=== PATIENT | female | born 1960 | race Caucasian/White ===

== ENCOUNTER 2018-11-19 22:38 | Outpatient (CLI) | payer MEDICAID | END 2018-11-19 22:39 | disposition critical access hospital (66) | LOC: EMS 22:38 | PROVIDERS: ATTEND Surgery | DX: R53.1 Weakness (principal); R42 Dizziness and giddiness | CPT/HCPCS: A0425; A0429; A0999 ==

== ENCOUNTER 2018-11-19 22:53 | Emergency (ER) | payer MEDICAID ==
--- NOTE | 2018-11-19 23:11 | ED Physician Documentation ---
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 Patient was using Raid bug spray tonight and upon breathing in the fumes she became dizzy and lightheaded, had nausea and vomiting, tinnitus, generalized weakness, and diaphoresis. She lay down and felt too weak and dizzy to get back up and thus called 911. Improved en route without specific intervention Review of Systems Constitutional: reports: Sweats. denies: Fever, Chills Eyes: denies: Loss of vision, Decreased vision Ears: reports: Tinnitus/ringing Cardiac: reports: Reviewed and negative Respiratory: reports: Reviewed and negative GI: reports: Nausea, Vomiting. denies: Abdominal Pain : denies: Incontinent Neurologic: reports: Generalized weakness. denies: Focal weakness, Numbness, Headache PD PAST MEDICAL HISTORY - Past Medical History Past Medical History: Yes Respiratory: Other ("reactive airway disease" (per patient)) - Present Medications Home Medications: Ambulatory Orders Medication Instructions Recorded Confirmed Albuterol Sulfate [Albuterol 2 puffs IH Q4HR PRN 11/20/18 11/20/18 Sulfate Hfa] Medroxyprogesterone Acetate 0.5 ml IM 11/20/18 [Depo-Subq Provera 104] Tiotropium [place] [Spiriva 2 puffs IH BID 11/20/18 11/20/18 Respimat] - Allergies Allergies/Adverse Reactions: Allergies Allergy/AdvReac Type Severity Reaction Status Date / Time codeine Allergy Rash Verified 11/19/18 22:58 hydromorphone [From Dilaudid] Allergy Hallucinati Verified 11/19/18 22:59 ons Penicillins Allergy Unknown Verified 11/19/18 22:58 aspirin AdvReac Emesis Verified 11/19/18 22:58 - Living Situation Living Arrangement: reports: At home PD ED PE NORMAL - Vitals Vital signs reviewed: Yes - General General: Alert and oriented X 3, No acute distress, Well developed/nourished - HEENT HEENT: PERRL, EOMI, Moist mucous membranes, Pharynx benign - Neck Neck: Supple, no meningeal sign - Cardiac Cardiac: RRR, No murmur, No gallop, No rub - Respiratory Respiratory: No respiratory distress, Clear bilaterally - Abdomen Abdomen: Soft, Non tender - Derm Derm: Normal color, Warm and dry - Extremities Extremities: No edema - Neuro Neuro: Alert and oriented X 3, 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, No motor deficit, No sensory deficit, Normal speech Results - Vitals Vitals: Vital Signs - 24 hr 11/19/18 11/19/18 11/20/18 22:53 23:52 01:08 Temperature 36.4 C L 36.3 C L Heart Rate 81 72 80 Respiratory 16 16 18 Rate Blood Pressure 114/72 116/74 124/70 O2 Saturation 100 100 97 11/20/18 01:17 Temperature 36.3 C L Heart Rate 66 Respiratory 16 Rate Blood Pressure 124/70 O2 Saturation 96 Oxygen O2 Source Room air - Labs Labs: Laboratory Tests 11/19/18 11/19/18 23:45 23:45 WBC 6.5 RBC 4.27 Hgb 13.5 Hct 40.2 MCV 94.3 MCH 31.7 H MCHC 33.6 RDW 14.2 Plt Count 146 MPV 8.8 Neut # (Auto) 4.7 Lymph # (Auto) 1.2 L Cook # (Auto) 0.5 Eos # (Auto) 0.1 Baso # (Auto) 0.0 Absolute Nucleated RBC 0.00 Nucleated RBC % 0.0 Manual Slide Review Indicated Platelet Estimate NORMAL (130-450,000) Platelet Morphology 1+ LARGE PLATELETS Sodium 134 L Potassium 4.4 Chloride 96 L Carbon Dioxide 30 Anion Gap 8.0 BUN 12 Creatinine 0.8 Estimated GFR (MDRD) 73 L Glucose 97 Calcium 8.6 PD MEDICAL DECISION MAKING - ED course Complexity details: reviewed results, re-evaluated patient, considered differential, d/w patient ED course: patient reported significant improvement in symptoms after IV fluids and zofran. She requests something for pain for her right neck and shoulder which have been aching for several days. She says she can take IV anti-inflammatory but not PO, and thus given toradol. Departure - Departure Disposition: 01 Home, Self Care Clinical Impression: Weakness Condition: Good Instructions: ED Weakness [facility]O Follow-Up: Khanh Dixon MD [Primary Care Provider] - Discharge Date/Time: 11/20/18 01:24
[2018-11-19] MEDS ORDERED: ONDANSETRON 4 MG/2 ML VIAL IVP STA (23:28)
[2018-11-19] MEDS ORDERED: SODIUM CHLORIDE 0.9% 1,000 ML IV STA (23:28)
[2018-11-19 23:57] LABS: BASOPHILS % (AUTO) 0.6 %; EOSINOPHILS # (AUTO) 0.1 10^3/uL (0.0-0.7); EOSINOPHILS % (AUTO) 1.3 %; HGB - HEMOGLOBIN 13.5 g/dL (12.0-16.0); LYMPHOCYTES # (AUTO) 1.2 10^3/uL (1.5-3.5); LYMPHOCYTES % (AUTO) 18.2 %; MEAN CORPUSCULAR HEMOGLOBIN 31.7 pg (27.0-31.0); MEAN CORPUSCULAR HGB CONC 33.6 g/dL (32.0-36.0); MEAN CORPUSCULAR VOLUME 94.3 fL (81.0-99.0); MEAN PLATELET VOLUME 8.8 fL (7.9-10.8); MONOCYTES # (AUTO) 0.5 10^3/uL (0.0-1.0); MONOCYTES % (AUTO) 7.9 %; NEUTROPHILS # (AUTO) 4.7 10^3/uL (1.5-6.6); PLT - PLATELET COUNT 146 10^3/uL (130-450); RED BLOOD COUNT 4.27 10^6/uL (4.20-5.40); RED CELL DISTRIBUTION WIDTH 14.2 % (12.0-15.0); WHITE BLOOD COUNT 6.5 x10^3/uL (4.8-10.8)
[2018-11-20 00:03] LABS: CALCIUM 8.6 mg/dL (8.5-10.3); CREATININE 0.8 mg/dL (0.4-1.0)
[2018-11-20] MEDS ORDERED: KETOROLAC 30 MG/ML VIAL IVP STA (00:54)
[2018-11-20] MEDS ORDERED: ONDANSETRON ODT 4 MG Prepack 2 TL STA (00:54)
[2018-11-20 01:09] VITALS: BP 124/70
[2018-11-20 01:23] LABS: PLATELET ESTIMATE, MANUAL NORMAL (130-450,000) (NORMAL); PLATELET MORPHOLOGY 1+ LARGE PLATELETS (NORMAL)
== END 2018-11-20 01:24 | disposition home or self-care (01) ==
LOC: ED 22:53
DX: R53.1 Weakness (principal)
CPT/HCPCS: 36415; 80048; 85025; 96361; 96374; 96375; 99283; 99284

== ENCOUNTER 2019-01-01 11:43 | Emergency (ER) | payer MEDICAID ==
--- NOTE | 2019-01-01 12:52 | ED Physician Documentation ---
PD HPI LOWER EXT INJURY - Stated complaint Stated Complaint: LEFT THIGH TO KNEE HURTING - Chief complaint Chief Complaint: Ext Problem - History obtained from History obtained from: Patient - History of Present Illness PD HPI LOW EXT INJURY LOCATION: Left, Thigh Type of injury: Blunt / blow (had a large dog jump onto her thigh and twist the leg. Pain at anterior left thigh, worse with hip flexion. Has history of osteoporosis so concerned about fracture.) Where injury occurred: Home Timing - onset: How many days ago (few) Timing - duration: Days (few) Timing - details: Abrupt onset, Still present Improved by: Rest Worsened by: Moving, Palpating Associated symptoms: No: Weakness, Numbness, Swelling Similar symptoms before: Has not had sx before Recently seen: Not recently seen Review of Systems Constitutional: denies: Fever, Chills, Myalgias Nose: denies: Rhinorrhea / runny nose, Congestion Throat: denies: Sore throat Respiratory: denies: Cough Skin: denies: Abrasion (s), Laceration (s) Neurologic: denies: Focal weakness, Numbness PD PAST MEDICAL HISTORY - Past Medical History Past Medical History: Yes Respiratory: Other GI: Other Musculoskeletal: Osteoarthritis, Osteoporosis, Chronic back pain, Other - Past Surgical History Past Surgical History: Yes General: Appendectomy Ortho: Carpal Tunnel surgery, 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, Hysterectomy - Present Medications Home Medications: Ambulatory Orders Medication Instructions Recorded Confirmed Albuterol Sulfate [Albuterol 2 puffs IH Q4HR PRN 11/20/18 11/20/18 Sulfate Hfa] Medroxyprogesterone Acetate 0.5 ml IM 11/20/18 [Depo-Subq Provera 104] Tiotropium [place] [Spiriva 2 puffs IH BID 11/20/18 11/20/18 Respimat] Dexamethasone [Decadron] 4 mg PO DAILY #5 tablet 01/01/19 Tramadol HCl 50 mg PO Q6H PRN #15 tablet 01/01/19 - Allergies Allergies/Adverse Reactions: Allergies Allergy/AdvReac Type Severity Reaction Status Date / Time codeine Allergy Rash Verified 01/01/19 11:54 hydromorphone [From Dilaudid] Allergy Hallucinati Verified 01/01/19 11:54 ons Penicillins Allergy Unknown Verified 01/01/19 11:54 aspirin AdvReac Emesis Verified 01/01/19 11:54 - Social History Does the pt smoke?: No Smoking Status: Never smoker Does the pt drink ETOH?: No Does the pt have substance abuse?: No - Immunizations Immunizations are current?: Yes - POLST Patient has POLST: No PD ED PE NORMAL - Vitals Vital signs reviewed: Yes - General General: Alert and oriented X 3, No acute distress, Well developed/nourished - Abdomen Abdomen: Soft, Non tender - Back Back: No spinal TTP - Derm Derm: Normal color, Warm and dry, No rash - Extremities Extremities: Other (left thigh anteriorly with some muscle tenderness. Not painful for passive rotation at hip nor with impaction stress of the hip. Hurts with flexion hip against resistance. knee extension does not hurt. ) - Neuro Neuro: Alert and oriented X 3, No motor deficit, No sensory deficit Results - Vitals Vitals: Oxygen O2 Source Room air - Rads (name of study) left femur Radiology: Prelim report reviewed (no fracture), EMP read contemporaneously, See rad report PD MEDICAL DECISION MAKING - ED course Complexity details: considered differential (seems muscle strain of psoas perhaps, with pain on hip flexion going down inguinal to thigh area. ), d/w patient Departure - Departure Disposition: 01 Home, Self Care Clinical Impression: Muscle strain Thigh pain Qualifiers: Laterality: left Qualified Code(s): M79.652 - Pain in left thigh Condition: Stable Record reviewed to determine appropriate education?: Yes Instructions: ED Strain Muscle Ext Follow-Up: Khanh Dixon MD [Primary Care Provider] - Prescriptions: Dexamethasone [Decadron] 4 mg PO DAILY #5 tablet Tramadol HCl 50 mg PO Q6H PRN #15 tablet PRN Reason: Pain Comments: Use the Decadron daily for 5 more days for inflammation. Add Tylenol for pains 4 times a day. Add tramadol if needed for worse pain. Recheck if not improving over the next several days to week. Discharge Date/Time: 01/01/19 14:43
[2019-01-01] MEDS ORDERED: ACETAMINOPHEN 325 MG TABLET PO STA (13:08)
[2019-01-01] MEDS ORDERED: DEXAMETHASONE 10 MG/ML VIAL PO STA (13:08)
--- NOTE | 2019-01-01 14:05 | XRAY Report ---
Reason: dog landed on leg, and hurts mid thigh to hip. Procedure Date: 01/01/2019 Accession Number: [id number] / [id number] Procedure: XR - Femur 2V LT CPT Code: FULL RESULT: EXAM: LEFT FEMUR RADIOGRAPHY EXAM DATE: 01/01/2019 01:53 PM. CLINICAL HISTORY: Persistent mid left femur pain 1 month following very large dog jumping on leg. COMPARISON: None. TECHNIQUE: 4 views. FINDINGS: Bones: Normal. No fracture or bone lesion. Joints: The visualized hip and knee joints are normal. No effusions. Soft Tissues: Surgical clips left lower quadrant. No soft tissue swelling. IMPRESSION: Normal femur radiography. RADIA
[2019-01-01 14:40] VITALS: BP 101/68
== END 2019-01-01 14:43 | disposition home or self-care (01) ==
LOC: ED 11:43
DX: S76.912A Strain of unspecified muscles, fascia and tendons at thigh level, left thigh, initial encounter (principal); X50.1XXA Overexertion from prolonged static or awkward postures, initial encounter; W54.1XXA Struck by dog, initial encounter; Y92.009 Unspecified place in unspecified non-institutional (private) residence as the place of occurrence of the external cause
CPT/HCPCS: 73552; 99283; A9270

== ENCOUNTER 2019-05-07 14:02 | Outpatient (CLI) | payer MEDICAID ==
--- NOTE | 2019-05-15 06:46 | Mammography Report ---
Reason: ANNUAL SCREENING MAMMO Procedure Date: 05/07/2019 Accession Number: [id number] / [id number] Procedure: REJI - Screening Mammo Dig Bilat CPT Code: FULL RESULT: EXAM: Screening Mammo Dig Bilat DATE: 05/07/2019 3:03 PM CLINICAL HISTORY: Screening encounter. Family history of breast cancer in the mother at the age of 79. History of left breast biopsy with clip placement and benign pathology. TECHNIQUE: (B) - Bilateral CC, laterally exaggerated CC, MLO views were obtained. COMPARISON: None PARENCHYMAL PATTERN: (D) - The breast(s) demonstrate(s) heterogeneously dense fibroglandular parenchyma. FINDINGS: Left breast biopsy clip is noted, consistent with provided history. There are typically benign coarse breast calcifications. There are no suspicious masses, calcifications, or areas of distortion. IMPRESSION: Benign findings. BI-RADS category 2. RECOMMENDATION: (ANNUAL) - Recommend routine annual screening mammography. BI-RADS CATEGORY: (2) - Benign Findings. STANDARD QUALIFYING STATEMENTS: 1. This examination was not reviewed with the aid of Computer-Aided Detection (CAD). 2. A negative or benign imaging report should not preclude biopsy if clinically suspicious findings are present. 3. Dense breasts may obscure an underlying neoplasm. 4. This examination was reviewed without the aid of 3D breast imaging (tomosynthesis).
== END 2019-05-07 14:03 | disposition home or self-care (01) ==
LOC: DI 14:02
PROVIDERS: ATTEND Internal Medicine
DX: Z12.31 Encounter for screening mammogram for malignant neoplasm of breast (principal); Z80.3 Family history of malignant neoplasm of breast
CPT/HCPCS: 77067

== ENCOUNTER 2019-05-15 19:56 | Emergency (ER) | payer MEDICAID ==
--- NOTE | 2019-05-15 20:55 | ED Physician Documentation ---
PD HPI BACK PAIN - Stated complaint Stated Complaint: LOWER BACK PAIN - Chief complaint Chief Complaint: Back Pain - History obtained from History obtained from: Patient - History of Present Illness Timing - onset: Today Timing - duration: Days (1/2) Timing - details: Abrupt onset, Still present Location: Lower Quality: Spasm Associated symptoms: Incontinent of stool. No: Fever, Incontinent of urine Worsened by: Movement Contributing factors: Lifting (She does have a history of disc problems in her back previously and then had some facet injections in the past. She has had intermittent sciatic symptoms down the left leg as she does currently. There is no fever or chills.) Similar symptoms before: Diagnosis (Herniated disks and back arthritis with sciatic symptoms intermittently.) Recently seen: Not recently seen (She is staying here with her son her daughter in order to take care of their young child. Prior evaluations have been out of the [facility] area.) Review of Systems Constitutional: denies: Fever, Chills, Myalgias GI: denies: Abdominal Pain : reports: Incontinent (of soft stool once today.). denies: Dysuria, Frequency Skin: denies: Rash, Lesions Musculoskeletal: denies: Extremity pain, Extremity swelling Neurologic: denies: Focal weakness, Numbness, Near syncope PD PAST MEDICAL HISTORY - Past Medical History Respiratory: Other GI: Other Musculoskeletal: Osteoarthritis, Osteoporosis, Chronic back pain, Other - Past Surgical History Past Surgical History: Yes General: Appendectomy Ortho: Carpal Tunnel surgery, Other /MERCHANDISE ASSOCIATE: section, Hysterectomy - Present Medications Home Medications: Ambulatory Orders Medication Instructions Recorded Confirmed Albuterol Sulfate [Albuterol 2 puffs IH Q4HR PRN 11/20/18 11/20/18 Sulfate Hfa] Medroxyprogesterone Acetate 0.5 ml IM 11/20/18 [Depo-Subq Provera 104] Tiotropium [place] [Spiriva 2 puffs IH BID 11/20/18 11/20/18 Respimat] Tramadol HCl 50 mg PO Q6H PRN #15 tablet 01/01/19 dexAMETHasone [Decadron] 4 mg PO DAILY #5 tablet 01/01/19 Hydrocodone/Acetaminophen [Holden 1 each PO Q6H PRN #20 tablet 05/15/19 5-325 Tablet] Methocarbamol [Robaxin] 500 mg PO Q6H PRN #30 tablet 05/15/19 dexAMETHasone [Decadron] 4 mg PO DAILY #7 tablet 05/15/19 - Allergies Allergies/Adverse Reactions: Allergies Allergy/AdvReac Type Severity Reaction Status Date / Time codeine Allergy Rash Verified 01/01/19 11:54 hydromorphone [From Dilaudid] Allergy Hallucinati Verified 01/01/19 11:54 ons Penicillins Allergy Unknown Verified 01/01/19 11:54 aspirin AdvReac Emesis Verified 01/01/19 11:54 - Social History Does the pt smoke?: No Smoking Status: Never smoker Does the pt drink ETOH?: No Does the pt have substance abuse?: No - Immunizations Immunizations are current?: Yes - POLST Patient has POLST: No PD ED PE NORMAL - Vitals Vital signs reviewed: Yes - General General: Alert and oriented X 3, No acute distress, Well developed/nourished - Neck Neck: Supple, no meningeal sign, No bony TTP, No adenopathy - Cardiac Cardiac: RRR, No murmur - Respiratory Respiratory: Clear bilaterally - Abdomen Abdomen: Soft, Non tender - Back Back: Other (There is some tenderness in the muscular area at the left paralumbar lower joints.) - Derm Derm: Normal color, Warm and dry - Neuro Neuro: Alert and oriented X 3, No motor deficit, Normal speech, Other (Light touch and pinprick evaluation is done in the lower extremities showing a general mild deficit. The patient is able to distinguish sharp dull and states the left side is just slightly decreased diffusely in the leg and not just a dermatomal distribution. She has normal sensation in the perirectal area) Results - Vitals Vitals: Vital Signs - 24 hr 05/15/19 05/15/19 20:00 22:25 Temperature 36.8 C Heart Rate 90 66 Respiratory 16 16 Rate Blood Pressure 112/68 119/82 H O2 Saturation 96 97 Oxygen O2 Source Room air PD MEDICAL DECISION MAKING - ED course Complexity details: considered differential (History of low back pain episodically and had back pain now with some radicular symptoms down the left leg. She said she lost control of her stool today. We will have her get imaging to ensure not looking like critical stenosis.), d/w patient Departure - Departure Disposition: 01 Home, Self Care Clinical Impression: Low back pain Qualifiers: Chronicity: acute Back pain laterality: unspecified Sciatica presence: with sciatica Sciatica laterality: sciatica of left side Qualified Code(s): M54.42 - Lumbago with sciatica, left side Condition: Stable Record reviewed to determine appropriate education?: Yes Instructions: ED Sciatica Follow-Up: Khanh Dixon MD [Primary Care Provider] - Prescriptions: dexAMETHasone [Decadron] 4 mg PO DAILY #7 tablet Hydrocodone/Acetaminophen [Holden 5-325 Tablet] 1 each PO Q6H PRN #20 tablet PRN Reason: Pain Methocarbamol [Robaxin] 500 mg PO Q6H PRN #30 tablet PRN Reason: Spasms Comments: You do have some disc disease and arthritis in the low back. There was not obvious severe impingement on the cord. There can be nerve root irritation causing her symptoms. Follow-up with your primary care regarding further evaluation and treatment and potential any referrals to back specialist. Decadron steroid daily for a week. Add Robaxin muscle relaxant if needed for spasms and stiffness. Add Tylenol or hydrocodone if needed for pain. Discharge Date/Time: 05/15/19 22:30
[2019-05-15] MEDS ORDERED: METHOCARBAMOL 500 MG TABLET PO STA (21:21)
[2019-05-15] MEDS ORDERED: ACETAMINOPHEN 325 MG TABLET PO STA (21:21)
[2019-05-15] MEDS ORDERED: DEXAMETHASONE 10 MG/ML VIAL PO STA (21:21)
[2019-05-15] MEDS ORDERED: CHERRY SYRUP 10 ML UDC PO ONE (21:21)
--- NOTE | 2019-05-15 22:00 | XRAY Report ---
Reason: knee pain for weeks Procedure Date: 05/15/2019 Accession Number: [id number] / [id number] Procedure: XR - Knee 3 View LT CPT Code: FULL RESULT: EXAM: LEFT KNEE RADIOGRAPHY EXAM DATE: 05/15/2019 09:51 PM. CLINICAL HISTORY: Knee pain for weeks, worse over last 2 days. COMPARISON: None. TECHNIQUE: 3 views. FINDINGS: Bones: Normal. No fractures or bone lesions. Joints: Normal. No effusion. No subluxations. Soft Tissues: Normal. No soft tissue swelling. IMPRESSION: Normal knee radiography. RADIA
--- NOTE | 2019-05-15 22:04 | CT Report ---
Reason: low back pain, numbness left leg, bowel loss Procedure Date: 05/15/2019 Accession Number: [id number] / [id number] Procedure: CT - LUMBAR SPINE WO CPT Code: FULL RESULT: EXAM: CT LUMBAR SPINE WITHOUT CONTRAST EXAM DATE: 05/15/2019 09:49 PM. CLINICAL HISTORY: Low back pain, numbness left leg, bowel loss. COMPARISONS: None. TECHNIQUE: Thin-section axial images were acquired of the lumbar spine from T12 to S1 without contrast. Post-processing: Coronal and sagittal reformats. Other: None. In accordance with CT protocol optimization, one or more of the following dose reduction techniques were utilized for this exam: automated exposure control, adjustment of mA and/or KV based on patient size, or use of iterative reconstructive technique. FINDINGS: Alignment: No scoliosis or spondylolisthesis. Bones: Five [id number] lumbar vertebral bodies are present. No acute fractures are identified. The bones, however, are markedly demineralized. Disk Levels/Facets: T12-L1: Unremarkable. L1-L2: There is a small right posterior paracentral protrusion with osteophytic change. There is minimal indentation on the right anterior aspect of the thecal sac. The canal and the foramina are widely patent. L2-L3: The disk is intact. The canal and the foramina are widely patent. L3-L4: There is minimal right posterior paracentral protrusion with osteophytic change. This slightly indents the thecal sac. The canal and foramina, however, are widely patent. L4-L5: The disk is degenerated and narrowed. There are marginal osteophytes. There is a broad-based posterior disk protrusion with surrounding osteitic change and slight calcification of the disk margin. There are degenerative changes at the facets. There is some enlargement of the ligamentum flavum. These findings together have conspired to cause moderate to early severe central canal stenosis and bilateral, lateral recess stenosis. The AP diameter of the thecal sac in the midline is 10 mm. Small osteophytes extend into the foramina and a small soft tissue protrusion extends into the undersurface of the left foramen causing moderate left foraminal narrowing. L5-S1: There is very minimal posterior disk bulging at this level. The canal and the foramina are widely patent. There is slight depression of the superior and inferior endplates of L5 indeterminate ages. Musculature: Normal. No fatty atrophy. Other: Atherosclerotic vascular calcifications noted involving the aorta. IMPRESSION: 1. Degenerative changes of the lumbar spine as described at each level above. 2. Degenerated narrowed L4-L5 disk with marginal osteophytes. Broad-based posterior protrusion which is partially calcified. The findings cause moderate to early severe canal stenosis and bilateral, lateral recess stenosis. The disk at this level also protrudes into the undersurface of the left foramen causing moderate left foraminal narrowing. RADIA
[2019-05-15 22:45] VITALS: BP 119/82
== END 2019-05-15 22:30 | disposition home or self-care (01) ==
LOC: ED 19:56
DX: M51.16 Intervertebral disc disorders with radiculopathy, lumbar region (principal); M48.061 Spinal stenosis, lumbar region without neurogenic claudication
CPT/HCPCS: 72131; 73562; 99284; A9270

== ENCOUNTER 2019-06-20 12:51 | Outpatient (CLI) | payer MEDICAID ==
--- NOTE | 2019-06-23 13:42 | DEXA Report ---
Reason: OSTEOPOROSIS Procedure Date: 06/20/2019 Accession Number: [id number] / [id number] Procedure: DEX - Dexa Spine and/or Hip CPT Code: FULL RESULT: EXAM: Dexa Spine and/or Hip DATE: 06/20/2019 1:25 PM CLINICAL HISTORY: Postmenopausal, rheumatoid or other inflammatory arthritis, history of steroid use. TECHNIQUE: Dual energy x-ray absorptiometry (DXA) was performed on a Cloud9 IDE System. Regions measured are the AP Spine, femoral neck, and if needed forearm. COMPARISON: None. In accordance with the International Society for Clinical Densitometry (ISCD) guidelines, data from previous exams may be reanalyzed using current recommendations and techniques. This is done to allow a more accurate basis for comparison with the current study. FINDINGS: The data for the lumbar spine is as follows: BMD (g/cm/cm) T-SCORE Z-SCORE REGION L1 0.851 -2.3 -0.5 L2 0.930 -2.3 -0.4 L3 0.943 -2.1 -0.3 L4 1.015 -1.5 0.3 TOTAL 0.939 -2.0 -0.2 NOTE: All evaluable vertebrae are used for classification The data for the hip is as follows: BMD (g/cm/cm) T-SCORE Z-SCORE REGION Neck 0.962 -0.5 1.1 TOTAL 0.958 -0.4 1.0 NOTE: The femoral neck or total proximal femur, whichever is lowest, is used for classification. IMPRESSION: THE WHO CLASSIFICATION BASED ON THE INTERNATIONAL REFERENCE STANDARD IS OSTEOPENIA, REFERENCE LUMBAR SPINE. THE FRACTURE RISK IS INCREASED. RECOMMENDATION: Patients with diagnosis of osteoporosis or osteopenia should have regular bone mineral density assessment. For those eligible for Medicare, routine testing is allowed once every 2 years. Testing frequency can be increased for patients who have rapidly progressing disease or for those who are receiving medical therapy to restore bone mass. COMMENT: World Health Organization (WHO) definitions for osteoporosis and osteopenia: NORMAL BMD: T-score at -1.0 or higher, fracture risk is low OSTEOPENIA BMD: T-score between -1.0 and -2.5, fracture risk is increased. OSTEOPOROSIS BMD: T-score at -2.5 or lower, fracture risk is high. National Osteoporosis Foundation recommends: 1. Obtain adequate dietary calcium (at least 1200 mg per day) and vitamin D (400-800 international units per day). 2. Participate, as appropriate, in regular weightbearing and muscle-strengthening exercise. 3. Avoid tobacco use and reduce alcohol and caffeine intake. 4. For more detailed information see the website at www.NOF.org.
== END 2019-06-20 12:52 | disposition home or self-care (01) ==
LOC: DI 12:51
PROVIDERS: ATTEND Internal Medicine
DX: M85.88 Other specified disorders of bone density and structure, other site (principal)
CPT/HCPCS: 77080

== ENCOUNTER 2020-07-11 11:21 | Outpatient (CLI) | payer MEDICARE, MEDICAID ==
--- NOTE | 2020-07-12 14:47 | Mammography Report ---
BILATERAL DIGITAL SCREENING MAMMOGRAM 3D/2D: 07/11/2020 CLINICAL: Routine screening. Family history of breast cancer. Comparison is made to exam dated: 05/07/2019 mammogram - Located within [facility]. The tissue of both breasts is heterogeneously dense. This may lower the sensitivity of mammography. There are benign calcifications in both breasts. There also is a biopsy clip in the left breast. No significant masses, calcifications, or other findings are seen in either breast. There has been no significant interval change. IMPRESSION: BENIGN There is no mammographic evidence of malignancy. A 1 year screening mammogram is recommended. This exam was interpreted at Station ID: [id number]. NOTE: For mammograms, a report in lay terms will be sent to the patient. Approximately 15% of breast malignancies will not be visualized mammographically. In the management of a palpable breast mass, a negative mammogram must not discourage biopsy of a clinically suspicious lesion. Electronically Signed By: Fernando Snow M.D. aty/penrad:07/12/2020 11:29:03 ACR BI-RADS Category 2: Benign Finding(s) 3342F PARENCHYMAL PATTERN: (D) - The breast(s) demonstrate(s) heterogeneously dense fibroglandular shanell best. BI-RADS CATEGORY: (2) - 2 RECOMMENDATION: (ANNUAL) - Recommend routine annual screening mammography. [id number] 1 year screening LATERALITY: (B)
== END 2020-07-11 11:22 | disposition home or self-care (01) ==
LOC: DI 11:21
PROVIDERS: ATTEND Family Medicine
DX: Z12.31 Encounter for screening mammogram for malignant neoplasm of breast (principal); Z80.3 Family history of malignant neoplasm of breast
CPT/HCPCS: 77063; 77067

== ENCOUNTER 2020-09-15 09:51 | Outpatient (CLI) | payer MEDICARE, MEDICAID ==
--- NOTE | 2020-09-15 10:15 | XRAY Report ---
PROCEDURE: Chest 2 View X-Ray INDICATIONS: COPD, ACUTE EXACERBATION TECHNIQUE: 2 view(s) of the chest. COMPARISON: None. FINDINGS: Surgical changes and devices: Partially visualized cervical spinal fixation hardware.. Lungs and pleura: No pleural effusions or pneumothorax. Lungs are clear. Mediastinum: Mediastinal contours are normal. Heart size is normal. Bones and chest wall: No suspicious bony abnormalities. Soft tissues appear unremarkable. IMPRESSION: No acute disease Reviewed by: Slick Coreas MD on 09/15/2020 10:14 AM [facility] Approved by: Slick Coreas MD on 09/15/2020 10:14 AM PST Station ID: [id number]
== END 2020-09-15 23:59 | disposition home or self-care (01) ==
LOC: DI.N 09:51
PROVIDERS: ATTEND Physician Assistant Medical
DX: J44.1 Chronic obstructive pulmonary disease with (acute) exacerbation (principal)

== ENCOUNTER 2020-09-27 08:00 | Outpatient (CLI) | payer MEDICARE, MEDICAID | END 2020-09-27 23:59 | LOC: LAB.R 08:00 | PROVIDERS: ATTEND Nurse Practitioner | DX: R05 Cough (principal); Z20.828 Contact with and (suspected) exposure to other viral communicable diseases | CPT/HCPCS: 87275; 87276; U0004 ==

== ENCOUNTER 2020-12-02 10:35 | Outpatient (CLI) | payer MEDICARE, MEDICAID ==
--- NOTE | 2020-12-02 13:19 | DEXA Report ---
PROCEDURE: Dexa Spine and/or Hip INDICATIONS: OSTEOPOROSIS TECHNIQUE: Dual energy x-ray absorptiometry (DXA) was performed on a [employer] System. Regions measur ed are the AP Spine, femoral neck, and if needed forearm. COMPARISON: None. FINDINGS: Lumbar Spine: Bone Mineral Density 0.971 g/cm/cm,T score -1.7, osteopenia, representing a 3.4% statistically sig nificant increase in bone mineral density from the comparison study 06/20/2019. Left Hip: Bone Mineral Density 0.950 g/cm/cm,T score -0.5, normal Left Femoral Neck: Bone Mineral Density 1.019 g/cm/cm, T score -0.1, normal (T score greater or equal to -1.0: NORMAL) (T score from -1.1 to -2.4: OSTEOPENIA) (T score less than or equal to -2.5 to: OSTEOPOROSIS) Impression: Normal bone mineral density of the left hip and left femoral neck. Osteopenic bone minera l density at the lumbosacral spine overall, with a statistically significant 3.4% increase in bone mi neral density from June 2019. Patients with diagnosis of osteoporosis or osteopenia should have regular bone mineral density assess ment. For those eligible for Medicare, routine testing is allowed once every 2 years. Testing frequ ency can be increased for patients who have rapidly progressing disease or for those who are receivin g medical therapy to restore bone mass. Reviewed by: Ash Gottlieb MD on 12/02/2020 1:17 PM PST Approved by: Ash Gottlieb MD on 12/02/2020 1:17 PM PST Station ID: [id number]
== END 2020-12-02 10:36 | disposition home or self-care (01) ==
LOC: DI 10:35
PROVIDERS: ATTEND Registered Nurse
DX: M85.88 Other specified disorders of bone density and structure, other site (principal); Z78.0 Asymptomatic menopausal state

== ENCOUNTER 2020-12-19 13:54 | Outpatient (CLI) | payer MEDICARE, MEDICAID ==
--- NOTE | 2020-12-20 17:27 | XRAY Report ---
PROCEDURE: Chest 2 View X-Ray INDICATIONS: DYSPNEA TECHNIQUE: 2 view(s) of the chest. COMPARISON: 09/15/2020. FINDINGS: Surgical changes and devices: None. Lungs and pleura: No pleural effusions or pneumothorax. Lungs are clear. Mediastinum: Mediastinal contours are normal. Heart size is normal. Bones and chest wall: No suspicious bony abnormalities. Soft tissues appear unremarkable. IMPRESSION: No acute cardiopulmonary disease process. Reviewed by: Keerthi Black MD, PhD on 12/20/2020 5:26 PM PDT Approved by: Keerthi Black MD, PhD on 12/20/2020 5:26 PM PDT Station ID: [id number]
== END 2020-12-19 23:59 | disposition home or self-care (01) ==
LOC: DI.N 13:54
PROVIDERS: ATTEND Nurse Practitioner
DX: R06.00 Dyspnea, unspecified (principal)

== ENCOUNTER 2021-03-10 12:00 | Outpatient (CLI) | payer MEDICARE, MEDICAID | END 2021-03-10 23:59 | disposition home or self-care (01) | LOC: COV 12:00 | PROVIDERS: ATTEND Surgery | DX: Z01.812 Encounter for preprocedural laboratory examination (principal); R13.10 Dysphagia, unspecified; R19.4 Change in bowel habit; J44.9 Chronic obstructive pulmonary disease, unspecified; Z20.822 Contact with and (suspected) exposure to COVID-19 ==

== ENCOUNTER 2021-03-14 09:28 | Observation (INO) | payer MEDICARE, MEDICAID ==
[2021-03-14] MEDS ORDERED: LACTATED RINGERS 1,000 ML IV ONE (09:31)
--- NOTE | 2021-03-14 10:46 | ANESTHESIA ---
Pre-Anesthesia VS, & Labs - Diagnosis dysphagia, change in bowel habits - Procedure egd, cscope Vital Signs: Temp Pulse Resp BP Pulse Ox 36.4 C L 78 16 102/77 95 03/14/21 09:34 03/14/21 09:34 03/14/21 09:34 03/14/21 09:34 03/14/21 09:34 Height: 5 ft 7 in Weight (kg): 52 kg Body Mass Index: 17.9 BMI Classification: Underweight - NPO >8 hours - Is Patient ?: No - Lab Results Lab results reviewed: Yes Home Medications and Allergies Home Medications: Ambulatory Orders Ascorbic Acid [Vitamin C] ORAL DAILY 03/11/21 Calcium Carbonate [Calcium] 600 mg PO DAILY 03/11/21 Cholecalciferol [Vitamin D3] ORAL DAILY 03/11/21 Cyanocobalamin (Vitamin B-12) [Vitamin B-12] 1,000 mcg PO DAILY 03/11/21 Albuterol Sulfate [Albuterol Sulfate Hfa] 2 puffs IH Q4HR PRN 11/20/18 Medroxyprogesterone Acetate [Depo-Subq Provera 104] 0.5 ml IM 11/20/18 Ascorbic Acid [Vitamin C] ORAL DAILY 03/11/21 Calcium Carbonate [Calcium] 600 mg PO DAILY 03/11/21 Cholecalciferol [Vitamin D3] ORAL DAILY 03/11/21 Cyanocobalamin (Vitamin B-12) [Vitamin B-12] 1,000 mcg PO DAILY 03/11/21 Allergies/Adverse Reactions: Allergies Allergy/AdvReac Type Severity Reaction Status Date / Time codeine Allergy Rash Verified 03/11/21 13:47 hydromorphone [From Dilaudid] Allergy Hallucinati Verified 03/11/21 13:47 ons Penicillins Allergy Unknown Verified 03/11/21 13:47 aspirin AdvReac Emesis Verified 03/11/21 13:47 Anes History & Medical History - Anesthetic History Anesthesia Complications: reports: No previous complications Family history of Anesthesia Complications: Denies Family history of Malignant Hyperthermia: Denies - Medical History Cardiovascular: reports: None Pulmonary: reports: Asthma, COPD, Emphysema Gastrointestinal: reports: Hiatal hernia, Other Urinary: reports: None Musculoskeletal: reports: Osteoarthritis, Osteopenia, Chronic back pain Endocrine/Autoimmune: reports: None Skin: reports: None Smoking Status: Never smoker - Surgical History General: reports: Appendectomy Eyes Ears Nose Throat (EENT): reports: Tonsil/Adenoidectomy Gynecologic: reports: section, Hysterectomy Orthopedic: reports: Carpal Tunnel surgery, Other Exam General: Alert Dental: Dentures full Upper, Dentures full Lower Mouth Openin Fingerbreadth Neck Mobility: Normal Mallampati classification: II Thyromental Distance: 4-6 cm Respiratory: Lungs clear, Normal breath sounds, No respiratory distress Cardiovascular: Regular rate Neurological: Normal speech Mental/Cognitive Status: Alert/Oriented X3, Normal for patient Cognitive Status: Within normal limits Plan Anesthesia Type: Total IV Consent for Procedure(s) Verified and Reviewed: Yes Code Status: Attempt Resuscitation ASA classification: 2-Mild systemic disease Is this case an emergency?: No
[2021-03-14] MEDS ORDERED: PROPOFOL 200 MG/20 ML VIAL IVP ONE (11:17)
[2021-03-14] MEDS ORDERED: LIDOCAINE-MPF 2% 5 ML VIAL ONE (11:17)
[2021-03-14] MEDS ORDERED: MIDAZOLAM 2 MG/2 ML VIAL ONE (11:18)
[2021-03-14] MEDS ORDERED: fentaNYL 100 MCG/2 ML VIAL ONE (11:18)
[2021-03-14] MEDS ORDERED: LACTATED RINGERS 500 ML IV ONE (12:23)
[2021-03-14] MEDS ORDERED: ALBUTEROL NEB 2.5 MG/3 ML INH ONE ×4 (12:44→13:51)
--- NOTE | 2021-03-14 13:38 | XRAY Report ---
PROCEDURE: Chest 1 View X-Ray INDICATIONS: short of breath TECHNIQUE: One view of the chest was acquired. COMPARISON: Large 14-20 21 FINDINGS: Surgical changes and devices: Lower cervical spine anterior plate and screw hardware noted. Lungs and pleura: No pleural effusions or pneumothorax. Lungs are clear. Mediastinum: Mediastinal contours appear normal. Heart size is normal. Bones and chest wall: No suspicious bony lesions. Overlying soft tissues appear unremarkable. IMPRESSION: No acute cardiopulmonary findings Reviewed by: Jefferson Almendarez MD on 03/14/2021 12:36 PM AKDT Approved by: Jefferson Almendarez MD on 03/14/2021 12:36 PM AKDT Station ID: [id number]
--- NOTE | 2021-03-14 14:30 | ANESTHESIA POST OP EVALUATION ---
Anesthesia Post Eval - Post Anesthesia Eval Vitals: Last Vital Signs Temp 36.5 C 03/14/21 14:05 Pulse 102 H 03/14/21 14:20 Resp 24 03/14/21 14:20 BP 130/99 H 03/14/21 14:20 Pulse Ox 95 03/14/21 14:20 CV Function Including HR & BP: Stable Pain Control: Satisfactory Nausea & Vomiting: Negative Mental Status: Baseline Respiratory Status: Other (supplemental oxygen to maintain sat.) Hydration Status: Satisfactory Anesthesia Complications: Other (Admit to observation for continued shortness of breath.)
--- NOTE | 2021-03-14 14:36 | CONSULTATION NOTE ---
Consultation Report: At termination of procedure and sedation, patient developed severe coughing. Oral pharynx suctioned. Patient transported to the recovery room on 5L O2 via mask. During recovery, patient c/o shortness of breath. Bilateral breath sounds reveal expiratory and inspiratory wheezing. Albuterol nebulizers and chest xray ordered. Chest xray was WNL, but patient required supplemental oxygen in order to maintain sat >90% and continued to c/o shortness of breath. Case discussed with surgeon and patient to be admitted to observation with hospitalist consult.
[2021-03-14] MEDS ORDERED: ONDANSETRON 4 MG/2 ML VIAL IVP PRN (14:52)
[2021-03-14] MEDS ORDERED: ALBUTEROL NEB 2.5 MG/3 ML INH PRN (14:52)
[2021-03-14] MEDS ORDERED: SODIUM CHLORIDE FLUSH 0.9% 10 ML SYRINGE IVP PRN (14:52)
--- NOTE | 2021-03-14 14:58 | SURGERY HX AND PHYSICAL(T) ---
Surgical History & Physical - Chief Complaint/HPI Chief Complaint: Respiratory difficulty History of Present Illness: 60-year-old female presenting for upper and lower endoscopy with post procedural dyspnea. Patient underwent upper and lower endoscopy; please see electronic medical record. Patient postprocedural developed significant cough, dyspnea, and increasing oxygen requirements. Patient is a longstanding smoker and recently quit. Attempted nebulizers. Patient had chest x-ray which was clear. No significant family history. Patient has been evaluated for change in bowel function, denies bleeding per rectum, and also persistent reflux associated symptoms. Patient long-term and significant history of using tobacco but has expressed a desire to discontinue tobacco use. This is and continues to be a challenge. No history of heart attack or stroke. Patient takes no systemic anticoagulation. Patient was planned for admission secondary to respiratory difficulty after failed conservative therapy. Hospitalist consulted. - PMH/PSH/Social Hx Does the pt have a hx of MRSA?: No Eyes, Ears, Nose, Throat: None Cardiovascular: None Respiratory: Asthma, COPD, Emphysema Skin: None Endocrine/Autoimmune: None Gastrointestinal: Hiatal hernia, Other Urinary: None Musculoskeletal: Osteoarthritis, Osteopenia, Chronic back pain Psychiatric: Depression General: Appendectomy Orthopedic: Carpal Tunnel surgery, Other Eyes Ears Nose Throat (EENT): Tonsil/Adenoidectomy Smoking Status: Never smoker Does the pt drink ETOH?: No Does the pt have substance abuse?: No - Home Meds and Allergies Home Medications: Albuterol Sulfate [Albuterol Sulfate Hfa] 2 puffs IH Q4HR PRN 11/20/18 Medroxyprogesterone Acetate [Depo-Subq Provera 104] 0.5 ml IM 11/20/18 Ascorbic Acid [Vitamin C] 1,000 mg ORAL DAILY 03/11/21 Calcium Carbonate [Calcium] 600 mg PO DAILY 03/11/21 Cyanocobalamin (Vitamin B-12) [Vitamin B-12] 1,000 mcg PO DAILY 03/11/21 Cholecalciferol (Vitamin D3) [Vitamin D3] 50 mcg PO DAILY 03/14/21 Glycopyrrolate/Formoterol Fum [Bevespi Aerosphere Inhaler] 2 puffs PO BID 03/14/21 Allergies/Adverse Reactions: Allergies Allergy/AdvReac Type Severity Reaction Status Date / Time codeine Allergy Rash Verified 03/11/21 13:47 hydromorphone [From Dilaudid] Allergy Hallucinati Verified 03/11/21 13:47 ons Penicillins Allergy Unknown Verified 03/11/21 13:47 aspirin AdvReac Emesis Verified 03/11/21 13:47 - Review of Systems Constitutional: Fatigue, Malaise Respiratory: Shortness of breath, Cough, Sputum Gastrointestinal: No: Abdominal pain - Vital Signs Heart Rate: 101 Blood Pressure: 95/62 Temperature: 36.7 C Respiratory Rate: 24 O2 Saturation: 95 Weight (kg): 52 kg Height: 1.7 m - Physical Exam Comments/Other: Patient alert awake and oriented x3; Mild distress No acute distress resting comfortably in bed Lungs clear to auscultation bilaterally no wheezes rales or rhonchi Radial pulses palpable bilaterally with good capillary refill Abdomen soft nontender nondistended no rebound no guarding Moving all extremities with no sensorimotor deficits Cranial nerves II through XII grossly intact - Patient Review Patient Review: Problems were reviewed with the patient during this visit. Medications were reviewed with the patient during this visit. Allergies were reviewed this patient during this visit. Pertinent Tests Reviewed: All pertitent test for this patient were reviewed. - Assessment & Plan Assessment and Plan: 60-year-old female status post upper and lower endoscopy with no significant findings. Longstanding history of tobacco abuse with asthma and COPD. Postprocedural COPD exacerbation with dyspnea. Will admit for nebulizer and hospitalist consultation. Will need supplemental oxygen. Respiratory consultation. DuoNebs. Will defer remainder medical management to hospitalist service.
[2021-03-14] MEDS ORDERED: IPRATROPIUM 0.2 MG/ML NEB INH SCH (15:00)
[2021-03-14] MEDS ORDERED: D5NS W/20 MEQ KCL 1,000 ML IV SCH (15:00)
[2021-03-14] MEDS: SODIUM CHLORIDE FLUSH 0.9% 10 ML SYRINGE IVP SCH (15:43)
[2021-03-14] MEDS: IPRATROPIUM/ALBUTEROL 3 ML NEB INH SCH ×2 (16:23→22:37)
[2021-03-14] MEDS: ACETAMINOPHEN 325 MG TABLET PO PRN (16:23)
--- NOTE | 2021-03-14 17:08 | PHARMACY PROGRESS NOTE ---
- Best Possible Medication History Admit Date and Time: 03/14/21 6909 Processed by: Pharmacy Medication History completed: Yes Patient Interview: Completed (PATIENT ABLE TO CONFIRM HOME MEDICATIONS) As the person ultimately responsible for medication therapy, providers are able to order a medication from an existing home medication list in [facility] via the "Reconcile Routine" prior to Confirmation of that medication by data support analyst. Such practice is discouraged except when the physician, in their clinical judgment, deems that a medical need exists for a medication without regard to previous use.
[2021-03-14] MEDS: methocarbamoL 500 MG TABLET PO SCH ×2 (18:03→23:45)
[2021-03-14] MEDS: METOCLOPRAMIDE 10 MG/2 ML VIAL IVP SCH ×2 (18:03→23:48)
[2021-03-14] MEDS ORDERED: IPRATROPIUM/ALBUTEROL 3 ML NEB INH PRN (20:52)
[2021-03-14] MEDS: polyethylene glycoL 3350 17 GM PACKET PO SCH (21:02)
[2021-03-14] MEDS: DOCUSATE SODIUM 100 MG CAPSULE PO SCH (21:02)
[2021-03-14] MEDS: HEPARIN 5,000 UNIT/ML VIAL SUBQ SCH (21:03)
--- NOTE | 2021-03-14 21:03 | CONSULTATION NOTE ---
Referring Provider Name of Referring Provider:: Dr Demarco Moise Consult Date: 03/14/21 Chief Complaint - Chief Complaint Chief Complaint: SOB with wheezing after EGD & colonoscopy History of Present Illness - Admitted From Admitted From:: Recovery room - History Obtained From History obtained from: Patient and chart review - History of Present Illness HPI Comment/Other: This is a 60-year-old white female with a history of COPD on inhalers who underwent an elective EGD and colonoscopy today. She started coughing and had shortness of breath and wheezing postop and needed supplemental oxygen to keep oxygen saturation greater than 90% in the recovery room. She was admitted to Observation from the recovery room for management of shortness of breath, oxygen desaturation and wheezing. The patient is a smoker since age 36, and she just quit 1 month ago. She vapes some nicotine she states. She always has worsening of her COPD in the spring when the pollen is in the air. She denies a fever, denies green sputum production, sore throat, and normally does not have dyspnea on exertion. She exercises in the gym several times a week without difficulty. History - Past Medical History Cardiovascular: reports: None Respiratory: reports: Asthma, COPD, Emphysema Endocrine/Autoimmune: reports: None GI: reports: Hiatal hernia, Other : reports: None HEENT: reports: None Psych: reports: Depression Musculoskeletal: reports: Osteoarthritis, Osteopenia, Chronic back pain Derm: reports: None MRSA Hx?: No - Past Surgical History General: reports: Appendectomy Ortho: reports: Carpal Tunnel surgery, Other (C-spine fusion) /FRONT DESK MONITOR: reports: section, Hysterectomy HEENT: reports: Tonsil/Adenoidectomy - Family & Social History Family History: Mother: , Father: Alive and Well Family History Comment/Other: She has 1 son, he was just diagnosed with diabetes mellitus. He when she was young. She has never remarried. She has a significant other in [place]. Living arrangement: At home Living Situation: With family Social History Notes: Was a smoker since age 36, she quit 1 month ago. She vapes nicotine occasionally. She also smokes marijuana occasionally "to relax". She drinks nearly no alcohol (only at New Year's). She moved from [place] to live with her son who is in the [place], in [place]. She is helping raise his children. - Substance History Use: Uses substance without health or social issues: Cannabis - POLST Patient has POLST: No POLST Status: Full Code Meds/Allgy - Home Medications Home Medications: Ambulatory Orders Medication Instructions Recorded Confirmed Albuterol Sulfate [Albuterol 2 puffs IH Q4HR PRN 11/20/18 03/14/21 Sulfate Hfa] Medroxyprogesterone Acetate 0.5 ml IM 11/20/18 [Depo-Subq Provera 104] Ascorbic Acid [Vitamin C] 1,000 mg ORAL DAILY 03/11/21 03/14/21 Calcium Carbonate [Calcium] 600 mg PO DAILY 03/11/21 03/11/21 Cyanocobalamin (Vitamin B-12) 1,000 mcg PO DAILY 03/11/21 03/11/21 [Vitamin B-12] Cholecalciferol (Vitamin D3) 50 mcg PO DAILY 03/14/21 03/14/21 [Vitamin D3] Glycopyrrolate/Formoterol Fum 2 puffs PO BID 03/14/21 03/14/21 [Bevespi Aerosphere Inhaler] - Allergies Allergies/Adverse Reactions: Allergies Allergy/AdvReac Type Severity Reaction Status Date / Time codeine Allergy Rash Verified 03/11/21 13:47 hydromorphone [From Dilaudid] Allergy Hallucinati Verified 03/11/21 13:47 ons Penicillins Allergy Unknown Verified 03/11/21 13:47 aspirin AdvReac Emesis Verified 03/11/21 13:47 Review of Systems - Respiratory Respiratory: reports: Cough, Wheezing, Other (She knows that when she gets green sputum production to call her PCP and a Medrol dose pack is ordered which helps her quickly.) - Gastrointestinal Gastrointestinal: reports: Other (The EGD was done because she has trouble swallowing ("food gets stuck"). She had the colonoscopy because she has irritable bowel syndrome and Hx of pre-malignant polyps.) - Musculoskeletal Musculoskeletal: reports: Back pain (Low back pain radiating mostly to the left leg. Chronic neck pain, minimally improved after her C-spine fusion surgery.), Joint pain (Left hip pain, left elbow pain, bilateral wrist pain, sciatica pain, frequent neck pain.) - All Other Systems All Other Systems: reports: Reviewed and negative Exam - Vital Signs Vital Signs: Vital Signs x48h Temp Pulse Pulse Resp BP BP Pulse Ox 03/14/21 18:13 36.9 C 108 H 18 119/62 96 03/14/21 16:33 36.5 C 100 20 93 03/14/21 16:30 110 H 20 03/14/21 16:11 36.3 C L 102 H 19 123/62 97 03/14/21 15:43 36.3 C L 109 H 21 107/83 H 95 03/14/21 15:10 37.2 C 110 H 25 H 122/70 96 03/14/21 15:00 102 H 22 114/69 95 03/14/21 14:58 36.7 C 101 H 24 95/62 95 03/14/21 14:50 101 H 24 95/62 95 03/14/21 14:40 104 H 22 121/67 97 03/14/21 14:30 36.7 C 102 H 22 122/71 96 03/14/21 14:20 102 H 24 130/99 H 95 03/14/21 14:15 104 H 94 H 117/71 22 L 03/14/21 14:10 113 H 28 H 118/68 90 L 03/14/21 14:05 36.5 C 106 H 26 H 125/72 95 03/14/21 14:00 120 H 30 H 117/82 H 89 L 03/14/21 13:55 110 H 24 118/75 96 03/14/21 13:50 109 H 20 128/70 97 03/14/21 13:45 105 H 18 118/73 98 03/14/21 13:40 120 H 24 113/75 91 L 03/14/21 13:30 105 H 20 122/72 96 03/14/21 13:25 110 H 22 117/75 96 03/14/21 13:22 114 H 22 119/77 94 03/14/21 13:15 100 18 118/74 99 03/14/21 13:10 100 22 104/67 100 03/14/21 13:05 108 H 24 122/65 94 - Physical Exam General Appearance: positive: No acute distress, Alert, Other (Thin white female) Eyes Bilateral: positive: Normal inspection, EOMI ENT: positive: No signs of dehydration Neck: positive: Nml inspection, No JVD Respiratory: positive: No respiratory distress, Breath sounds nml Cardiovascular: positive: Regular rate & rhythm, No murmur Abdomen: positive: Nml bowel sounds, Tenderness Skin: positive: No rash, Warm, Dry Extremities: positive: No pedal edema Neurologic/Psychiatric: positive: Oriented x3 (Non-focal) Conclusion/Plan - Diagnosis Diagnosis: 1) Acute respiratory failure with hypoxia. 2) COPD exacerbation. 3) Recent ex-smoker. 4) Chronic neck and back pain - Plan Plan: 1) Agree with DuoNeb treatment that was ordered scheduled qid and will add as needed every 4 hours. 2) Initiate inhaled corticosteroids via nebulizer as well. 3) Continue supplemental oxygen, weaning down as tolerated to keep saturations greater than 88%. 4) Add Mucinex to help with expectoration of the cough. 5) We will also add Robitussin-AC prn for the cough 6) To assure there is no other etiology of the shortness of breath will obtain an EKG, troponins, BNP and CMP and CBC 7) Because her LV ejection fraction is not known, will decrease IV fluids from 125 cc/hr to 83.33 cc/hr. 8) Agree with sq Heparin ordered for DVT prophylaxis. - Lab Results Lab results reviewed: Yes Fish Bones: 03/14/21 21:03 03/14/21 21:03 - Diagnostic Imaging Results Diagnostic Imaging Results: positive: Final report reviewed Diagnostic Imaging Results Comments: CXR showed no acute pulmonary process - EKG Results EKG Interpreted Independently: Yes EKG Comparison: Old EKG unavailable EKG Findings: Sinus rhythm, rate 86, first-degree AV block, right atrial enlargement, vertical QRS axis.
[2021-03-14 21:12] LABS: BASOPHILS % (AUTO) 0.2 %; EOSINOPHILS % (AUTO) 0.1 %; HGB - HEMOGLOBIN 12.1 g/dL (12.0-16.0); LYMPHOCYTES % (AUTO) 2.6 %; MEAN CORPUSCULAR HGB CONC 33.6 g/dL (32.0-36.0); MEAN CORPUSCULAR VOLUME 95.2 fL (81.0-99.0); MONOCYTES % (AUTO) 3.8 %; NEUTROPHILS % (AUTO) 92.8 %; PLT - PLATELET COUNT 197 10^3/uL (130-450); RED BLOOD COUNT 3.78 10^6/uL (4.20-5.40); RED CELL DISTRIBUTION WIDTH 13.5 % (12.0-15.0); WHITE BLOOD COUNT 23.3 x10^3/uL (4.8-10.8)
[2021-03-14 21:16] LABS: ABNORMAL LYMPHS % (MANUAL) 0 %
[2021-03-14 21:25] LABS: ALBUMIN 3.5 g/dL (3.2-5.5); ALBUMIN/GLOBULIN RATIO 1.7 (1.0-2.2); BILIRUBIN,TOTAL 0.6 mg/dL (0.2-1.0); CREATININE 0.7 mg/dL (0.4-1.0); TOTAL PROTEIN 5.6 g/dL (6.7-8.2)
[2021-03-14] MEDS: guaiFENesin 600 MG TABLET PO SCH (21:29)
[2021-03-14] MEDS: D5NS W/20 MEQ KCL 1,000 ML IV SCH (21:30)
[2021-03-14 21:42] LABS: BAND NEUTROPHILS % (MANUAL) 5 %; LYMPHOCYTES # (MANUAL) 0.2 10^3/uL (1.5-3.5); LYMPHOCYTES % (MANUAL) 1 %; MONOCYTES # (MANUAL) 0.2 10^3/uL (0.0-1.0); NEUTROPHILS # (MANUAL) 22.8 10^3/uL (1.5-6.6)
[2021-03-14 21:43] LABS: DIFFERENTIAL COMMENT MANUAL DIFFERENTIAL; PLATELET ESTIMATE, MANUAL NORMAL (130-450,000) (NORMAL); PLATELET MORPHOLOGY NORMAL APPEARANCE (NORMAL); RBC MORPHOLOGY (MULTIPLE) NORMAL APPEARANCE (NORMAL); WBC MORPHOLOGY (MULTIPLE) NORMAL APPEARANCE (NORMAL)
[2021-03-14] MEDS ORDERED: KETOROLAC 30 MG/ML VIAL IVP STA (22:06)
[2021-03-14] MEDS ORDERED: guaiFENesin/CODEINE 5 ML UDC PO PRN (22:06)
[2021-03-14] MEDS: FORMOTEROL FUMARATE NEB 20 MCG/2 ML INH SCH (22:36)
[2021-03-15 05:33] LABS: BASOPHILS # (AUTO) 0.1 10^3/uL (0.0-0.1); BASOPHILS % (AUTO) 0.3 %; EOSINOPHILS # (AUTO) 0.1 10^3/uL (0.0-0.7); EOSINOPHILS % (AUTO) 0.3 %; HCT - HEMATOCRIT 33.2 % (37.0-47.0); LYMPHOCYTES % (AUTO) 11.6 %; MEAN CORPUSCULAR HEMOGLOBIN 32.3 pg (27.0-31.0); MEAN CORPUSCULAR HGB CONC 33.1 g/dL (32.0-36.0); MEAN CORPUSCULAR VOLUME 97.4 fL (81.0-99.0); MEAN PLATELET VOLUME 10.4 fL (7.9-10.8); MONOCYTES # (AUTO) 0.8 10^3/uL (0.0-1.0); MONOCYTES % (AUTO) 4.8 %; NEUTROPHILS # (AUTO) 14.1 10^3/uL (1.5-6.6); NEUTROPHILS % (AUTO) 82.6 %; PLT - PLATELET COUNT 163 10^3/uL (130-450); RED BLOOD COUNT 3.41 10^6/uL (4.20-5.40); RED CELL DISTRIBUTION WIDTH 13.5 % (12.0-15.0); WHITE BLOOD COUNT 17.1 x10^3/uL (4.8-10.8)
[2021-03-15] MEDS: METOCLOPRAMIDE 10 MG/2 ML VIAL IVP SCH ×2 (05:37→11:47)
[2021-03-15] MEDS: SODIUM CHLORIDE FLUSH 0.9% 10 ML SYRINGE IVP SCH ×2 (05:37→08:23)
[2021-03-15] MEDS: methocarbamoL 500 MG TABLET PO SCH ×2 (05:38→11:47)
[2021-03-15] MEDS: FORMOTEROL FUMARATE NEB 20 MCG/2 ML INH SCH (06:32)
[2021-03-15] MEDS: IPRATROPIUM/ALBUTEROL 3 ML NEB INH SCH ×2 (06:32→11:20)
[2021-03-15] MEDS: ACETAMINOPHEN 325 MG TABLET PO PRN (07:01)
[2021-03-15] MEDS: D5NS W/20 MEQ KCL 1,000 ML IV SCH (08:10)
[2021-03-15] MEDS: guaiFENesin 600 MG TABLET PO SCH (08:12)
[2021-03-15] MEDS: HEPARIN 5,000 UNIT/ML VIAL SUBQ SCH (08:20)
[2021-03-15] MEDS: DOCUSATE SODIUM 100 MG CAPSULE PO SCH (08:22)
[2021-03-15] MEDS: polyethylene glycoL 3350 17 GM PACKET PO SCH (08:22)
[2021-03-15] MEDS ORDERED: BUDESONIDE 0.5 MG/2 ML NEB INH SCH (08:39)
[2021-03-15 08:57] LABS: CALCIUM 7.9 mg/dL (8.5-10.3); CREATININE 0.6 mg/dL (0.4-1.0); POTASSIUM 3.5 mmol/L (3.5-5.0)
[2021-03-15] MEDS ORDERED: CYANOCOBALAMIN 500 MCG TABLET PO SCH (09:00)
[2021-03-15] MEDS ORDERED: CALCIUM CARB (OYSTER SHELL) 500 MG TABLET PO SCH (09:00)
[2021-03-15] MEDS ORDERED: ASCORBIC ACID CHEW 500 MG TABLET PO SCH (09:00)
[2021-03-15] MEDS ORDERED: CHOLECALCIFEROL 25 MCG TABLET PO SCH (09:00)
[2021-03-15] MEDS ORDERED: KETOROLAC 10 MG TABLET PO PRN (09:05)
[2021-03-15] MEDS ORDERED: predniSONE 20 MG TABLET PO SCH (09:22)
--- NOTE | 2021-03-15 10:14 | XRAY Report ---
PROCEDURE: Chest 1 View X-Ray INDICATIONS: cough, ngt TECHNIQUE: One view of the chest was acquired. COMPARISON: 03/14/2021 FINDINGS: Surgical changes and devices: None. Lungs and pleura: No pleural effusions or pneumothorax. Lungs are clear. The lungs are hyperexpand ed, unchanged compared to prior x-rays. Mediastinum: Mediastinal contours appear normal. Heart size is normal. Bones and chest wall: No suspicious bony lesions. Overlying soft tissues appear unremarkable. IMPRESSION: No acute cardiopulmonary abnormality. Reviewed by: Brandon Rao on 03/15/2021 10:12 AM PDT Approved by: Brandon Rao on 03/15/2021 10:12 AM PDT Station ID: [id number]
[2021-03-15 10:52] LABS: BILIRUBIN,URINE NEGATIVE (NEGATIVE); GLUCOSE, URINE (UA) NEGATIVE (NEGATIVE); KETONES,URINE (UA) NEGATIVE (NEGATIVE); LEUKOCYTE ESTERASE, URINE NEGATIVE (NEGATIVE); NITRITE,URINE NEGATIVE (NEGATIVE); OCCULT BLOOD,URINE NEGATIVE (NEGATIVE); PROTEIN,URINE NEGATIVE (NEGATIVE); UROBILINOGEN,URINE 1 (NORMAL) E.U./dL (NORMAL)
[2021-03-15 11:02] LABS: BACTERIA,URINE Rare /HPF (None Seen); CLARITY,URINE CLEAR (CLEAR); RBC,URINE 0-5 /HPF (0-5); SQUAMOUS EPITHELIAL CELL,UR FEW Squamous (<= Few); WBC,URINE 0-3 /HPF (0-5)
--- NOTE | 2021-03-15 14:05 | Discharge Plan ---
Discharge Plan Problem Reviewed?: Yes Disposition: Home, Self Care Condition: Good Prescriptions: Docusate Sodium 100Mg Capsule [Colace 100Mg Capsule] 100 mg PO BID #60 tab predniSONE [Deltasone] 30 mg PO DAILYWM #30 tablet polyethylene glycoL 3350 [Miralax] 17 gm PO BID #30 packet guaiFENesin [Mucinex] 600 mg PO BID #60 tablet Budesonide [Pulmicort] 0.5 mg INH RTBID #60 neb Diet: Regular Activity Restrictions: No Restrictions Shower Restrictions: No Driving Restrictions: No Instruction Topics: COPD, COPD Dc, Asthma Control, COPD Tx No Smoking: If you smoke, Please STOP! Call for help. Follow-up with: Charleen Quiñones ARNP [Primary Care Provider] - 1 Week
--- NOTE | 2021-03-15 14:05 | DISCHARGE SUMMARY ---
"Discharge Summary Admit Date: 03/14/21 Discharge Date: 03/15/21 Discharging Provider: Jose Maria Code Status: Attempt Resuscitation Condition at Discharge: Good Discharge Disposition: 01 Home, Self Care - DIAGNOSES Admission Diagnoses: 1) Acute respiratory failure with hypoxia 2) COPD exacerbation 3) Recent ex-smoker/Tobacco use and abuse 4) Chronic neck and back pain 5) Colonic polyp 6) Loose stooling 7) Dysphagia Discharge Diagnoses with Status of Each Condition: 1) Acute respiratory failure with hypoxia - Resolved 2) COPD exacerbation - Resolved 3) Recent ex-smoker/Tobacco use and abuse - Encouraged to continue with abstinence 4) Chronic neck and back pain - Stable 5) Colonic polyp - Resected 6) Loose stooling - Evaluated/Path Pending 7) Dysphagia - Evaluated/Path Pending - HPI History of Present Illness: 60-year-old female presenting for upper and lower endoscopy with post procedural dyspnea. Patient underwent upper and lower endoscopy; please see electronic medical record. Patient postprocedural developed significant cough, dyspnea, and increasing oxygen requirements. Patient is a longstanding smoker and recently quit. Attempted nebulizers. Patient had chest x-ray which was clear. No significant family history. Patient has been evaluated for change in bowel function, denies bleeding per rectum, and also persistent reflux associated symptoms. Patient long-term and significant history of using tobacco but has expressed a desire to discontinue tobacco use. This is and continues to be a challenge. No history of heart attack or stroke. Patient takes no systemic anticoagulation. Patient was planned for admission secondary to respiratory difficulty after fa iled conservative therapy. - CONSULTS | PROCEDURES Consultations: Hospitalist Procedures: Patient status post upper and lower endoscopy with no complication tolerated well. No issues throughout with sedation. Colonoscopy findings as per below: 1. Appropriate prep; patient with diminished sphincter tone, positive rectocele, signs of anterior sphincteric thinning consistent with possible historic trauma, likely obstetrical. 2. Ileocecal valve achieved as evidenced by the appendiceal orifice both ph otographed. 3. Terminal ileum intubated with no enteritis. Cold forceps biopsy taken. 4. Cecum without cecitis. The entirety of the colon was out colitis. No diverticulosis or diverticulitis. Secondary to loose stooling random biopsies obtained for the colon throughout. Cold forceps. 5. Careful slow withdrawal single hepatic flexure polyp performed for cold forcep polypectomy complete. Retrieved. 6. Exceedingly tortuous colon 7. Rectum without proctitis. Sigmoid without diverticulosis. No diverticulitis. 8. Internal hemorrhoids nonbleeding. Upper endoscopy findings as per below: 1. Duodenum normal. No evidence of of duodenitis. Cold forcep biopsy obtained. Hemostatic. 2. Antrum without any antritis. Biopsies obtained cold forceps. Hemostatic. Patent pylorus. 3. Retroflexion with no significant hiatal herniation. 4. No diffuse gastritis or gastropathy. No polyps. No ulcerations. 5. GE junction with mild inflammatory changes and irregular Z-line. Biopsied. No varices appreciated. 6. Distal esophageal biopsies above the Z-line to rule out metaplasia. No areas of esophageal stricture or anatomic correlate to the patient's dysphagia - HOSPITAL COURSE Hospital Course: 60-year-old female status post upper and lower endoscopy with no significant findings. Longstanding history of tobacco abuse with asthma and COPD. Postprocedural COPD exacerbation with dyspnea. Will admit for nebulizer and hospitalist consultation. Will need supplemental oxygen. Respiratory consultation. DuoNebs. Will defer remainder medical management to hospitalist service. 1) Acute respiratory failure with hypoxia 2) COPD exacerbation 3) Recent ex-smoker/Tobacco use and abuse 4) Chronic neck and back pain 5) Colonic polyp 6) Loose stooling 7) Dysphagia Seen by the hospitalist service. With the following recommendations. 1) Agree with DuoNeb treatment that was ordered scheduled qid and will add as needed every 4 hours. 2) Initiate inhaled corticosteroids via nebulizer as well. 3) Continue supplemental oxygen, weaning down as tolerated to keep saturations greater than 88%. 4) Add Mucinex to help with expectoration of the cough. 5) We will also add Robitussin-AC prn for the cough 6) To assure there is no other etiology of the shortness of breath will obtain an EKG, troponins, BNP and CMP and CBC 7) Because her LV ejection fraction is not known, will decrease IV fluids from 125 cc/hr to 83.33 cc/hr. 8) Agree with sq Heparin ordered for DVT prophylaxis. Patient underwent above listed procedure without any complication. Patient underwent operative intervention as listed in the electronic medical record. Again was admitted secondary to respiratory difficulty which was a consequence of COPD exacerbation. Chest x-ray was within normal limits. EKG was within normal limits. No troponin elevation. Postoperatively the patient was managed for postoperative analgesia and resumption of bowel function. Patient had successfully passed trial of void. Tolerated oral intake without any complication. Denied nausea denied vomiting. Was advanced for diet without any complication. Patient was tolerating oral analgesia, p.o. nutrition with soft diet, voiding spontaneously, with positive resumption of bowel function. Afebrile hemodynamically acceptable. Electrolytes repleted throughout and blood counts as a relates to risks of anemia in the perioperative setting and leukocytosis as an inflammatory marker were all stable without any concerns. Discharge instructions given. Patient plan for follow-up and will be notified of pathology once returned. Continue to encourage for smoking cessation. Stable for discharge from both the hospitalist and surgical standpoint. - ALLERGIES Allergies/Adverse Reactions: Allergies Allergy/AdvReac Type Severity Reaction Status Date / Time codeine Allergy Rash Verified 03/11/21 13:47 hydromorphone [From Dilaudid] Allergy Hallucinati Verified 03/11/21 13:47 ons Penicillins Allergy Unknown Verified 03/11/21 13:47 aspirin AdvReac Emesis Verified 03/11/21 13:47 - MEDICATIONS Home Medications: Ambulatory Orders Medication Instructions Recorded Confirmed Albuterol Sulfate [Albuterol 2 puffs IH Q4HR PRN 11/20/18 03/14/21 Sulfate Hfa] Medroxyprogesterone Acetate 0.5 ml IM 11/20/18 [Depo-Subq Provera 104] Ascorbic Acid [Vitamin C] 1,000 mg ORAL DAILY 03/11/21 03/14/21 Calcium Carbonate [Calcium] 600 mg PO DAILY 03/11/21 03/11/21 Cyanocobalamin (Vitamin B-12) 1,000 mcg PO DAILY 03/11/21 03/11/21 [Vitamin B-12] Cholecalciferol (Vitamin D3) 50 mcg PO DAILY 03/14/21 03/14/21 [Vitamin D3] Glycopyrrolate/Formoterol Fum 2 puffs PO BID 03/14/21 03/14/21 [Bevespi Aerosphere Inhaler] Acetaminophen [Tylenol] 650 mg PO Q4HR PRN tablet 03/15/21 Albuterol 2.5 mg INH RTQ4H PRN neb 03/15/21 Budesonide [Pulmicort] 0.5 mg INH RTBID #60 neb 03/15/21 Calcium Carb (Oyster Shell) 500 mg PO DAILY tablet 03/15/21 [[place]-500] Cyanocobalamin [Vitamin B-12] 1,000 mcg PO DAILY tablet 03/15/21 Docusate Sodium 100Mg Capsule 100 mg PO BID #60 tab 03/15/21 [Colace 100Mg Capsule] guaiFENesin [Mucinex] 600 mg PO BID #60 tablet 03/15/21 polyethylene glycoL 3350 [Miralax] 17 gm PO BID #30 packet 03/15/21 predniSONE [Deltasone] 30 mg PO DAILYWM #30 tablet 03/15/21 - PHYSICAL EXAM AT DISCHARGE Physical Exam Other/Comments: General Appearance: positive: No acute distress Eyes Bilateral: positive: Normal inspection ENT: positive: ENT inspection nml Neck: positive: Nml inspection Respiratory: positive: Chest non-tender, No respiratory distress, Breath sounds nml. negative: Wheezes, Rales, Rhonchi Cardiovascular: positive: Regular rate & rhythm Abdomen: positive: No distention, Other. negative: Guarding, Rebound Extremities: positive: Non-tender, Full ROM, Nml appearance Neurologic/Psychiatric: positive: Oriented x3, CN's nml (2-12) - LABS Result Diagrams: 03/15/21 05:11 03/15/21 05:11 - DIAGNOSTIC IMAGING Diagnostic Imaging Results: Final report reviewed - SEPSIS Current Stage of Sepsis: Ruled out - FOLLOW UP Follow Up: DISCHARGE INSTRUCTIONS TEMPLATE: No heavy lifting, pushing, or pulling. Stairs are allowed, no strenuous/exertional activities. 5-10lbs weight carrying limit (i.e. gallon of milk) If provided, abdominal binder while out of bed and while ambulating. Call or proceed to clinic/ER for fevers, severe pain, nausea, vomiting, inability to pass flatus/stool, bleeding, wound redness/discharge, weakness, excessively loose stool/diarrhea, or for any other reasonably worrisome symptom or concern. Soft diet, no raw vegetables, avoid high fiber foods. Colace 100mg by mouth twice to three times daily while taking narcotic pain medication. If no bowel movement in 24-48hr, may take 17g Miralax in 8oz water twice daily until bowel movement. May shower, no submersive bathing. Follow up in clinic in 2-4 weeks for wound check and staple removal. No driving while taking narcotic pain medications. Follow up with primary care provider and/or medical subspecialist following d ischarge as well. Patient not allowed to drive self today or within 24 hours of surgery. - TIME SPENT Time Spent in Discharge (Minutes): 60"
[2021-03-15 15:50] VITALS: BP 145/56
== END 2021-03-15 16:23 | disposition home or self-care (01) ==
LOC: SDS 09:28 → OBS 14:52 → MS2 15:40
PROVIDERS: ADMIT Surgery; ATTEND Surgery
PROC: 0DB98ZX Excision of Duodenum, Via Natural or Artificial Opening Endoscopic, Diagnostic (ICD-10-PCS; 2021-03-14)
PROC: 0DB78ZX Excision of Stomach, Pylorus, Via Natural or Artificial Opening Endoscopic, Diagnostic (ICD-10-PCS; 2021-03-14)
PROC: 0DB38ZX Excision of Lower Esophagus, Via Natural or Artificial Opening Endoscopic, Diagnostic (ICD-10-PCS; 2021-03-14)
PROC: 0DBB8ZX Excision of Ileum, Via Natural or Artificial Opening Endoscopic, Diagnostic (ICD-10-PCS; 2021-03-14)
PROC: 0DBH8ZX Excision of Cecum, Via Natural or Artificial Opening Endoscopic, Diagnostic (ICD-10-PCS; principal; 2021-03-14 10:30)
PROC: 0DBL8ZZ Excision of Transverse Colon, Via Natural or Artificial Opening Endoscopic (ICD-10-PCS; 2021-03-14 10:30)
DX: R19.4 Change in bowel habit (principal); K58.9 Irritable bowel syndrome, unspecified; R13.10 Dysphagia, unspecified; D12.3 Benign neoplasm of transverse colon; K64.8 Other hemorrhoids; K92.1 Melena; J96.01 Acute respiratory failure with hypoxia; J43.9 Emphysema, unspecified; K44.9 Diaphragmatic hernia without obstruction or gangrene; K20.90 Esophagitis, unspecified without bleeding; F17.290 Nicotine dependence, other tobacco product, uncomplicated; F17.210 Nicotine dependence, cigarettes, uncomplicated; M54.2 Cervicalgia; M54.9 Dorsalgia, unspecified; G89.29 Other chronic pain; I44.0 Atrioventricular block, first degree; R63.6 Underweight; Z68.1 Body mass index [BMI] 19.9 or less, adult
CPT/HCPCS: 36415; 43239; 45380; 71045; 80048; 80053; 81001; 83880; 84484; 85025; 93005; 94640; 94761; 96365; 96366; 96372; A9270; G0378; J2765; J7120; J7512; 87086

== ENCOUNTER 2021-03-25 09:59 | Outpatient (CLI) | payer MEDICARE, MEDICAID ==
[2021-03-25 12:34] LABS: ALBUMIN 4.3 g/dL (3.2-5.5); ALBUMIN/GLOBULIN RATIO 1.7 (1.0-2.2); BILIRUBIN,TOTAL 0.6 mg/dL (0.2-1.0); CALCIUM 9.1 mg/dL (8.5-10.3); CREATININE 0.8 mg/dL (0.4-1.0); MAGNESIUM 2.1 mg/dL (1.7-2.8); POTASSIUM 3.5 mmol/L (3.5-5.0); TOTAL PROTEIN 6.9 g/dL (6.7-8.2)
== END 2021-03-25 10:00 | disposition home or self-care (01) ==
LOC: LAB.N 09:59
PROVIDERS: ATTEND Internal Medicine
DX: E55.9 Vitamin D deficiency, unspecified (principal); E83.51 Hypocalcemia
CPT/HCPCS: 36415; 80053; 82306; 83735; 83970